=== PATIENT | female | born 1990 | race Caucasian/White ===

== ENCOUNTER 2016-12-19 00:32 | Emergency (ER) | payer OTHER ==
[~2016-12-19] VITALS: Ht 160 cm; Wt 63.1 kg
[2016-12-19 00:36] VITALS: BP 137/95; PULSE 116; RESP 16; TEMP 99; O2SAT 98
[2016-12-19 01:00] VITALS: BP 137/95; PULSE 116; RESP 16; TEMP 99; O2SAT 98
[2016-12-19] MEDS ORDERED: NUVAMIS VAGINAL (01:00)
--- NOTE | 2016-12-19 01:11 | PD ---
HPI Chief Complaint: ENT Complaint Time Seen by Provider: 01:07 Travel History International Travel<30 days: No Contact w/Intl Traveler<30days: No Traveled to known affect area: No History of Present Illness HPI 26 year-old female presents to the emergency department by private transportation the care of her spouse for complaint of sore throat since Saturday evening. Patient states started with scratchiness and soreness of the throat which seem to worsen all day Saturday. Patient states she did drink some tea to remain hydrated. Patient did not take any medication such as acetaminophen or ibuprofen. Patient did take a one-time dose of Benadryl. Due to persistent sore throat pain and noting that she thought she had a fever and temperature elevation of 99F decided to come to the emergency room at this time for evaluation. Patient states she feels like her throat is swollen. Patient states it's painful to swallow and feels like it's more difficult to swallow when she is resting supine. No report of sinus pressure drainage ear pain neck pain cough shortness of breath chest pain abdominal pain vomiting diarrhea dysuria frequency or urgency. Patient is on control and last period was 3 weeks ago and does not believe that she is . No report of flank pain. Patient has had myalgias and arthralgias. Patient has not had the flu vaccine for this season. PFSH Past Medical History Medical History: Denies Significant Hx Tetanus Vaccination: > 5 Years Influenza Vaccination: Yes ?: Unknown LMP: 3 WEEKS AGO Past Surgical History Other Surgery: Yes (WISDOM TEETH) Social History Alcohol Use: Yes (OCCASIONAL) Tobacco Use: No Substance Use: No Allergies-Medications (Allergen,Severity, Reaction): Coded Allergies: azithromycin (Verified Allergy, Severe, Hives, 12/19/16) Reported Meds & Prescriptions Reported Meds & Active Scripts Active Reported Nuvaring Vaginal Insert (Etonogestrel-Ethinyl Estradiol Vaginal Insert) 0.120- 0.015 Mg/24 Hr Vagring 1 Applic VAGINAL DIRECTED Review of Systems General / Constitutional: Positive: Fever, No: Chills HENT: Positive: Sore Throat, No: Congestion (subjective) Cardiovascular: No: Chest Pain or Discomfort Respiratory: No: Cough Gastrointestinal: No: Vomiting, Abdominal Pain Genitourinary: No: Frequency, Dysuria, Flank Pain Musculoskeletal: Positive: Myalgias, Arthralgias Skin: No Rash Neurologic: No: Weakness Psychiatric: No: Anxiety Hematologic/Lymphatic: No: Lymph Node Enlargement Physical Exam Narrative GENERAL: Well-developed well-nourished female in no acute distress no respiratory distress mild tachycardia heart rate in triage 116 afebrile; no stridor no hoarseness SKIN: Warm and dry. HEAD: Normocephalic. EYES: No scleral icterus. No injection or drainage. ENT: Mucous membranes moist airway is patent. Tympanic membranes no redness no dullness to loss of landmarks no perforation. NECK: Supple, trachea midline. No JVD or lymphadenopathy. Supple no meningismus no nuchal rigidity. CARDIOVASCULAR: Regular rate and rhythm without murmurs, gallops, or rubs. RESPIRATORY: Breath sounds equal bilaterally. No accessory muscle use. GASTROINTESTINAL: Abdomen soft, non-tender, nondistended. MUSCULOSKELETAL: No cyanosis, or edema. BACK: Nontender without obvious deformity. No CVA tenderness. Data Data Last Documented VS Vital Signs Date Time Temp Pulse Resp B/P (MAP) Pulse Ox O2 Delivery O2 Flow Rate FiO2 12/19/16 02:23 18 12/19/16 02:22 99.1 102 119/97 (104) 98 Room Air Orders Orders Influenzae A/B Antigen (12/19/16 01:07) Group A Rapid Strep Screen (12/19/16 01:07) Ibuprofen (Motrin) (12/19/16 01:15) Strep Culture (Group A) (12/19/16 01:14) Acetaminophen (Tylenol) (12/19/16 02:30) MDM Medical Decision Making Medical Screen Exam Complete: Yes Emergency Medical Condition: Yes Medical Record Reviewed: Yes Interpretation(s) Rapid strep antigen: Negative Influenza A/B antigen: Negative Differential Diagnosis Viral syndrome, tonsillitis, influenza, sinusitis, dehydration; also to consider peritonsillar abscess Narrative Course Specimens collected for influenza antigen and rapid strep antigen; patient denies and administered weight-based ibuprofen 600 mg Patient given acetaminophen 650 mg by mouth At 3:05 AM patient reassessed patient's complaint of ear pain throat pain has markedly diminished and patient states she feels clinically improved repeat vital signs indicated heart rate had decreased to 102 prior to administration of acetaminophen. Patient is encouraged to take oral hydration and to increase fluid hydration. Patient is stable for outpatient management at this time. Diagnosis Primary Impression: Acute pharyngitis Qualified Codes: J02.9 - Acute pharyngitis, unspecified Referrals: Primary Care Physician call for appointment Patient Instructions: General Instructions Departure Forms: Tests/Procedures, Work Release Special Instructions: no wrk x 1 day 12/19/16 Additional Instructions: Increase fluid hydration Follow clear liquid diet for next 12-24 hours advance as tolerated to bland/ Kylah diet and advance as tolerated to regular diet Take acetaminophen/Tylenol every 4 hours for fever 100.4F or greater Take ibuprofen/Advil/Motrin 600 mg as often as every 6 hours as needed for fever 100.4F or greater or for pain associated inflammation May use lozenges Chloraseptic spray or warm salt water gargles for throat relief No work times one day Complete course of antibiotic as prescribed Follow-up with your primary care provider call office to schedule follow-up appointment Return to the emergency department for any concerns or change in condition Med/Other Pt SpecificInfo: Prescription(s) given Scripts Cephalexin (Keflex) 500 Mg Capsule 500 MG PO Q6H for Infection for 7 Days, #28 CAP 0 Refills Prov: Tena Briscoe MD 12/19/16 Disposition: DISCHARGE HOME Condition: Stable Tena Briscoe MD Dec 19, 2016 01:11
[2016-12-19] MEDS ORDERED: IBUPROFEN 600 MG TAB PO ONE (01:15)
[2016-12-19 02:22] VITALS: BP 119/97; PULSE 102; RESP 18; TEMP 99.1; O2SAT 98
[2016-12-19 02:23] VITALS: RESP 18
[2016-12-19] MEDS ORDERED: ACETAMINOPHEN 325 MG TAB PO ONE (02:30)
[2016-12-19] MEDS ORDERED: CEPH-460 PO (03:08)
[2016-12-19 03:12] VITALS: TEMP 99.5
== END 2016-12-19 03:20 | disposition home or self-care (01) ==
LOC: PHED 00:32
DX: J02.9 Acute pharyngitis, unspecified (principal)
CPT/HCPCS: 87081; 87804; 87880; 99283